=== PATIENT | female | born 1990 | race Caucasian/White ===

== ENCOUNTER → 2018-03-14 14:49 | Outpatient (CLI) | payer OTHER, SELFPAY ==
[2018-03-14 15:27] LABS: Add Manual Diff / Slide Review NO; Basophils Percent Auto 0.7 % (0-2); Hematocrit 35.8 % (36-46); Hemoglobin 12.6 g/dL (12.0-16.0); Lymphocytes Percent Auto 24.1 % (25-40); Mean Corpuscular HGB Conc 35.2 % (30-36); Mean Corpuscular Hemoglobin 29.3 PG (26-34); Mean Corpuscular Volume 83.2 fL (80-100); Monocytes Percent Auto 6.3 % (3-14); Neutrophils Absolute Auto 5000 /uL (3000-5900); Neutrophils Percent Auto 67.9 % (50-75); Platelet Count 278 X10^3/uL (150-400); Red Cell Distribution Width 14.5 % (11.6-14.8); White Blood Cell Count 7.4 X10^3/uL (4.5-11.0)
[2018-03-14 16:45] LABS: Hepatitis B Surface Antigen NEGATIVE s/c (NEGATIVE); Rubella Antibody IgG 17.6 IU/mL (>15)
[2018-03-14 16:53] LABS: HIV 1 and 2 Antibody NEGATIVE (NEGATIVE); Hep C Virus Ab w/Reflex Quant NEGATIVE s/c (NEGATIVE)
[2018-03-18 14:06] LABS: HSV 2 IGG AB < 0.90 index (< 0.90); HSV1IGG < 0.90 index (< 0.90)
[2018-03-19 05:27] LABS: AFP, Serum 34.7 ng/mL; Calc Gestational Age 16.3; Cigarette Smoker N; Donated Egg NOT GIVEN; Donor Egg Age NOT GIVEN; Estriol, Free 1.18 ng/mL; Inhibin A, Dimeric 200 pg/mL; Maternal Weight 113 lbs; Number of Fetuses NOT GIVEN; Previous Pregnancy Down Syndro NOT GIVEN; hCG, MoM 1.45; hCG, Serum 56.2 IU/mL
[2018-03-21 08:40] LABS: Rapid Plasma Reagin NON-REACTIVE
== END ==
PROVIDERS: Visit Provider Obstetrics & Gynecology
DX: Z34.91 Encounter for supervision of normal pregnancy, unspecified, first trimester (principal); Z34.82 Encounter for supervision of other normal pregnancy, second trimester
CPT/HCPCS: 36415; 80055; 82105; 82677; 84702; 86336; 86695; 86696; 86703; 86787; 86803; 86850; 86900; 86901; 87086

== ENCOUNTER → 2018-04-17 09:11 | Outpatient (CLI) | payer OTHER, SELFPAY ==
--- NOTE | 2018-04-17 09:13 | DI.US.S_ITS ---
PROCEDURE: US OB >= 14 WEEKS FETUS INDICATIONS: ANATOMY OUTSIDE/PRIOR DATING DATA: Last menstrual period (LMP): 11/20/17. LMP-based estimated date of delivery (FAVIO): 08/27/18. First dating scan (date and location): 02/14/18. Estimated date of delivery (FAVIO) from first dating scan: 08/22/18. TECHNIQUE: Real-time scanning was performed of the fetus, with image documentation and biometric measurements. Endovaginal scanning: Not requested. COMPARISON: [facility], , OB >= 14 WEEKS FETUS, 03/14/2018, 14:37. FINDINGS: General: A single living intrauterine gestation is present. Presentation: Breech. Placenta: Placental position is anterior, without previa. Amniotic fluid index: 16.5 cm, normal range is 5-24 cm. heart rate: 145 beats per minute. Maternal cervical canal: 3.7 cm long. Normal lower limit is 2.5 cm. biometrics: Biparietal diameter: 23 weeks 2 days Head circumference: 20 weeks 5 days Abdominal circumference: 21 weeks 4 days Femur length: Weeks 3 days Estimated gestational age from initial scan: 21 weeks 6 days Composite gestational age from present scan: 22 weeks 2 days Estimated weight and percentile: 444 g; 36 percentile Measurement variability for biometric dating: +/- 7 days from 14 weeks to 15 weeks 6 days gestation, +/- 10 days from 16 weeks to 21 weeks 6 days gestation, +/- 2 weeks from 22 weeks to 27 weeks 6 days gestation, +/- 3 weeks for 28 weeks gestation or later. weight reference: 4500 g or EFW >90/95% is considered macrosomia or large for gestational age. EFW <10% is small for gestational age. EFW 5% or less is considered intra-uterine growth restriction. Anatomic survey: Neuro: Ventricles are non-dilated at less than 10 mm. Cisterna magna is normal at 3-11 mm. Cerebellum is normal in size and morphology. Nuchal skin fold: Normal at less than 6 mm between 14-21 weeks gestational age. Face: Nose and lips, facial profile are normal. Spine: No evidence for spina bifida. Heart: 4-chambered heart is present, with normal ventricular outflow tracts. Diaphragm: Diaphragm is intact. Stomach: Left-sided stomach is present. Kidneys: No hydronephrosis. Normal is less than 5 mm in 2nd trimester, less than 7 mm in 3rd trimester. Cord: 3-vessel cord has orthotopic insertion. Bladder: Normal in size. Extremities: All 4 extremities identified. IMPRESSION: 1. Single living IUP redemonstrated and interval growth is normal. 2. Normal anatomic survey. Dictated by: Jesus LEONG Interpreted: Malcolm Cunha MD on 04/17/2018 at 12:09 Approved by: Malcolm Cunha M.D. on 04/17/2018 at 14:50
== END ==
PROVIDERS: Family Provider Obstetrics & Gynecology; PCP Obstetrics & Gynecology; Visit Provider Obstetrics & Gynecology
DX: Z36.89 Encounter for other specified antenatal screening (principal); Z34.82 Encounter for supervision of other normal pregnancy, second trimester; Z3A.22 22 weeks gestation of pregnancy
CPT/HCPCS: 76811

== ENCOUNTER → 2018-06-12 15:09 | Outpatient (CLI) | payer OTHER, MEDICAID, SELFPAY ==
[2018-06-12 16:35] LABS: Hematocrit 31.3 % (36-46); Hemoglobin 10.8 g/dL (12.0-16.0)
[2018-06-12 17:04] LABS: GTT (PREG) 1 Hour PP 50gm Dose 112 mg/dL (76-139)
== END ==
PROVIDERS: PCP Obstetrics & Gynecology; Visit Provider Obstetrics & Gynecology
DX: Z34.82 Encounter for supervision of other normal pregnancy, second trimester (principal); Z3A.25 25 weeks gestation of pregnancy
CPT/HCPCS: 36415; 82950; 85014; 85018; 86850

== ENCOUNTER → 2018-07-22 15:54 | Outpatient (CLI) | payer OTHER, MEDICAID, SELFPAY ==
[2018-07-23 13:58] LABS: Strep Grp B PCR NEG for Grp B Strep
== END ==
PROVIDERS: Family Provider Obstetrics & Gynecology; PCP Obstetrics & Gynecology; Visit Provider Obstetrics & Gynecology
DX: Z34.83 Encounter for supervision of other normal pregnancy, third trimester (principal)
CPT/HCPCS: 87653

== ENCOUNTER 2018-08-18 01:30 | Inpatient (IN) | payer OTHER, MEDICAID, SELFPAY ==
[2018-08-18 03:02] LABS: Add Manual Diff / Slide Review NO; Basophils Absolute Auto 0 /uL (0-100); Basophils Percent Auto 0.4 % (0-2); Eosinophils Absolute Auto 0 /uL (0-450); Eosinophils Percent Auto 0.4 % (2-4); Hematocrit 34.3 % (36-46); Hemoglobin 11.7 g/dL (12.0-16.0); Lymphocytes Absolute Auto 1700 /uL (1100-4500); Lymphocytes Percent Auto 19.1 % (25-40); Mean Corpuscular HGB Conc 34.1 % (30-36); Mean Corpuscular Hemoglobin 28.5 PG (26-34); Mean Corpuscular Volume 83.6 fL (80-100); Monocytes Absolute Auto 800 /uL (0-900); Monocytes Percent Auto 9.1 % (3-14); Neutrophils Absolute Auto 6300 /uL (1500-7000); Platelet Count 195 X10^3/uL (150-400); Red Cell Distribution Width 12.9 % (11.6-14.8); White Blood Cell Count 8.9 X10^3/uL (4.5-11.0)
--- NOTE | 2018-08-18 03:56 | PM.OBPRVD ---
Delivery date: 08/18/18 Intrapartal events: None Cervical ripening method: none Induction method: none Delivery monitor: external FHT and external uterine Route of delivery: Episiotomy description: None L&D Laceration Description: Superficial (Perineal) Delivery repair: chromic (4-0) Estimated blood loss (mL): 100 Anesthesia type: Local (For repair) Complications: None Narrative: Patient complete and pushed with 1 contraction. At 3:39 a.m., a live female delivered spontaneously in the right occiput transverse presentation. No nuchal cord. The remainder of the body delivered without difficulty and infant was placed on mom's abdomen. The cord was double clamped and cut after it stopped pulsing. Cord bloods were obtained. The placenta delivered intact with a 3 vessel cord at 4:46 a.m.. A superficial perineal laceration was repaired with 4-0 chromic after 3 cc of 1% lidocaine were injected. Apgars 9 at 1 min and 9 at 5 min. Fundus firm. No analgesia except for local for the repair. . Estimated blood loss 100 cc. Mom and stable to recovery. Plan for aftercare: To routine care
[2018-08-18] MEDS: IBUPROFEN 600 MG TABLET PO ×4 (04:00→22:47)
--- NOTE | 2018-08-18 04:00 | PM.OBHP.1 ---
OB HPI Date/Time Date of admission: 08/18/18 Date Patient Seen: 08/18/18 Time Patient Seen: 03:00 History of Present Condition Chief complaint: evaluation of labor : 6 Para: 3 Estimated Date of Delivery: 08/27/18 Estimated Gestational Age (weeks): 38+5 Narrative: Nataly Kern is a 28 year old female 6 para 3 at 38-,5/7 weeks gestation who presented in active labor History of Present care: good care, initiated at week # (12), number of visits (9) and pounds weight gain (22) Dating criteria: LMP confirmed by 1st trimester US Ultrasounds: normal 1st trimester US and normal mid trimester US Obstetrical complications: none Medical complications: none Preadmission Labs Blood type: 0 (-) negative -: Antibody screen: negative, GBS status: negative, HBsAG: negative, HIV: negative, HSV 1: negative, HSV 2: negative and RPR/VDLR: negative -: Chlamydia screen: not detected and Gonorrhea screen: not detected -: Rubella: immune and Varicella: immune HCT: 31.3 HCAB: negative PAP: Normal Quad screen: Normal Urine: Lactobacilli 1 hr GTT: 112 Evaluation Evaluation Baseline heart rate: 135 Variability: Moderate (11-25) monitor accelerations: Present monitor decelerations: Absent Contraction Frequency (minutes): 3 Uterine Contraction Intensity: Strong/Firm Category of Tracing: I Cervical dilation (cm): 5 Cervical effacement (%): 100 station: +1 Laboratory results: Laboratory Tests 08/18/18 02:40 WBC 8.9 RBC 4.10 Hgb 11.7 L Hct 34.3 L MCV 83.6 MCH 28.5 MCHC 34.1 RDW 12.9 Plt Count 195 Neut % (Auto) 71.0 Lymph % (Auto) 19.1 L [place] % (Auto) 9.1 Eos % (Auto) 0.4 L Baso % (Auto) 0.4 Neut # (Auto) 6300 Lymph # (Auto) 1700 [place] # (Auto) 800 Eos # (Auto) 0 Baso # (Auto) 0 Meds Home Medications Medication Instructions Recorded Confirmed Type Multivitamin and Gegxsqhd06 1 tab PO Q DAY #0 09/22/12 08/18/18 History () ferrous sulfate 1 tab PO DAILY 08/18/18 08/18/18 History Allergies Allergy/AdvReac Type Severity Reaction Status Date / Time PCN (PENICILLIN) Allergy Mild Uncoded 08/18/18 02:51 Exam Vital Signs (past 8 hours): Generally: Patient in moderate distress secondary to contractions Lungs: Clear to auscultation bilaterally Cardiovascular: Regular rate and rhythm Fundal height: 38 cm Estimated weight 7 lb Extremities: Negative Homans, no edema Objective Labs Result Diagrams: 08/18/18 02:40 Labs: Laboratory Results - last 24 hr 08/18/18 02:40 WBC 8.9 RBC 4.10 Hgb 11.7 L Hct 34.3 L MCV 83.6 MCH 28.5 MCHC 34.1 RDW 12.9 Plt Count 195 Neut % (Auto) 71.0 Lymph % (Auto) 19.1 L [place] % (Auto) 9.1 Eos % (Auto) 0.4 L Baso % (Auto) 0.4 Neut # (Auto) 6300 Lymph # (Auto) 1700 [place] # (Auto) 800 Eos # (Auto) 0 Baso # (Auto) 0 Assessment and Plan (1) 38 weeks gestation of : Current visit: Yes Status: Acute (2) Active labor: Current visit: Yes Status: Acute Plan: Plan: Assessment: 28-year-old 6 para 3 at 38-,5/7 weeks gestation in active labor Plan: Expected management to spontaneous vaginal delivery
[2018-08-18] MEDS: OXYCODONE/ACETAMINOPHEN 5/325 TABLET 2 TAB PO ×4 (04:45→17:42)
[2018-08-18 05:24] VITALS: BP 106/58
[2018-08-18] MEDS: PRENATAL VIT,CALC/IRON/FOLIC 1 TABLET 1 TAB PO (09:50)
[2018-08-18] MEDS: DOCUSATE 250 MG CAPSULE PO (09:50)
--- NOTE | 2018-08-18 19:04 | PM.OBPN.1 ---
Subjective - OB Interval history: Patient is a 28-year-old 4 para 4 day # 0-1 status post spontaneous vaginal delivery Patient comments: no complaints, pain well controlled and tolerating diet [place] baby status: doing well and nursing well feeding status: exclusively breast feeding Date Patient Seen: 08/18/18 Time Patient Seen: 19:05 Exam Vital Signs (past 8 hours): Generally: Patient is sitting up in bed, holding infant, no acute distress Fundus: Firm at U -1 Extremities: Negative Homans, no edema Objective Labs Result Diagrams: 08/18/18 02:40 Labs: Laboratory Results - last 24 hr 08/18/18 08/18/18 02:40 02:40 WBC 8.9 RBC 4.10 Hgb 11.7 L Hct 34.3 L MCV 83.6 MCH 28.5 MCHC 34.1 RDW 12.9 Plt Count 195 Neut % (Auto) 71.0 Lymph % (Auto) 19.1 L [place] % (Auto) 9.1 Eos % (Auto) 0.4 L Baso % (Auto) 0.4 Neut # (Auto) 6300 Lymph # (Auto) 1700 [place] # (Auto) 800 Eos # (Auto) 0 Baso # (Auto) 0 Blood Type O Negative Antibody Screen Positive Antibody Identification Anti-D Assessment & Plan (1) 38 weeks gestation of : Status: Acute Current Visit: Yes (2) Active labor: Status: Acute Current Visit: Yes (3) Normal spontaneous vaginal delivery: Status: Acute Assessment and plan: Assessment: day # 0-1 status post spontaneous vaginal delivery, doing well Plan: Continue routine care Anticipate discharge 08/19/2017 Current Visit: Yes Plan day: 0 plan OB: routine care Time Spent With Patient Total time spent is greater than 50% in coordination of care (as documented) at patient's floor/unit and/or counseling patient: 15-24 minutes
--- NOTE | 2018-08-18 19:07 | P.PNOB_ITS ---
Subjective - OB Interval history: Patient is a 28-year-old 4 para 4 day # 0- 1 status post spontaneous vaginal delivery Patient comments: no complaints, pain well controlled and tolerating diet baby status: doing well and nursing well [place] feeding status: exclusively breast feeding Date Patient Seen: 08/18/18 Time Patient Seen: 19:05 Exam Vital Signs (past 8 hours): Generally: Patient is sitting up in bed, holding , no acute distress Fundus: Firm at U -1 Extremities: Negative Homans, no edema Objective Labs Result Diagrams: 08/18/18 02:40 Labs: Laboratory Results - last 24 hr 08/18/18 08/18/18 02:40 02:40 WBC 8.9 RBC 4.10 Hgb 11.7 L Hct 34.3 L MCV 83.6 MCH 28.5 MCHC 34.1 RDW 12.9 Plt Count 195 Neut % (Auto) 71.0 Lymph % (Auto) 19.1 L [place] % (Auto) 9.1 Eos % (Auto) 0.4 L Baso % (Auto) 0.4 Neut # (Auto) 6300 Lymph # (Auto) 1700 [place] # (Auto) 800 Eos # (Auto) 0 Baso # (Auto) 0 Blood Type O Negative Antibody Screen Positive Antibody Identification Anti-D Assessment & Plan (1) 38 weeks gestation of : Status: Acute Current Visit: Yes (2) Active labor: Status: Acute Current Visit: Yes (3) Normal spontaneous vaginal delivery: Status: Acute Assessment and plan: Assessment: day # 0-1 status post spontaneous vaginal delivery, doing well Plan: Continue routine care Anticipate discharge 08/19/2017 Current Visit: Yes Plan day: 0 plan OB: routine care Time Spent With Patient Total time spent is greater than 50% in coordination of care (as documented) at patient's floor/unit and/or counseling patient: 15-24 minutes
[2018-08-19] MEDS: IBUPROFEN 600 MG TABLET PO ×2 (05:58→12:26)
[2018-08-19] MEDS: OXYCODONE/ACETAMINOPHEN 5/325 TABLET 1 TAB PO ×2 (05:58→12:26)
[2018-08-19 06:43] LABS: Hematocrit 32.2 % (36-46); Hemoglobin 10.8 g/dL (12.0-16.0)
[2018-08-19] MEDS: LANOLIN OINT 7 GM 1 APPLIC TOP (09:05)
[2018-08-19] MEDS: DOCUSATE 250 MG CAPSULE PO (09:06)
[2018-08-19] MEDS: PRENATAL VIT,CALC/IRON/FOLIC 1 TABLET 1 TAB PO (09:06)
[2018-08-19 12:39] VITALS: BP 107/64; PULSE 92; RESP 16; TEMP 37.3
== END 2018-08-19 13:25 | disposition home or self-care (01) | DRG 807 ==
PROVIDERS: Admitting Provider Family Medicine; Family Provider Obstetrics & Gynecology; PCP Obstetrics & Gynecology; Visit Provider Family Medicine
DX: O70.0 First degree perineal laceration during delivery (principal); Z37.0 Single live birth; Z3A.38 38 weeks gestation of pregnancy
CPT/HCPCS: 36415; 59050; 59400; 85014; 85018; 85025; 86850; 86870; 86900; 86901; G0379